=== PATIENT | female | born 1950 | race Caucasian/White ===

== ENCOUNTER 2018-07-14 09:54 | Emergency (ER) | payer MEDICARE, BC ==
[2018-07-14 10:43] LABS: BILIRUBIN,URINE NEGATIVE (NEGATIVE); GLUCOSE, URINE (UA) NEGATIVE (NEGATIVE); KETONES,URINE (UA) NEGATIVE (NEGATIVE); LEUKOCYTE ESTERASE, URINE NEGATIVE (NEGATIVE); NITRITE,URINE NEGATIVE (NEGATIVE); OCCULT BLOOD,URINE NEGATIVE (NEGATIVE); PH,URINE 5.5 PH (5.0-7.5); PROTEIN,URINE NEGATIVE (NEGATIVE); UROBILINOGEN,URINE 0.2 (NORMAL) E.U./dL (NORMAL)
[2018-07-14 10:45] LABS: CLARITY,URINE CLEAR (CLEAR)
[2018-07-14 11:23] LABS: BASOPHILS % (AUTO) 0.5 %; EOSINOPHILS # (AUTO) 0.1 10^3/uL (0.0-0.7); EOSINOPHILS % (AUTO) 2.3 %; HGB - HEMOGLOBIN 13.3 g/dL (12.0-16.0); LYMPHOCYTES # (AUTO) 0.8 10^3/uL (1.5-3.5); LYMPHOCYTES % (AUTO) 16.8 %; MEAN CORPUSCULAR HEMOGLOBIN 30.7 pg (27.0-31.0); MEAN CORPUSCULAR HGB CONC 34.2 g/dL (32.0-36.0); MEAN CORPUSCULAR VOLUME 89.8 fL (81.0-99.0); MEAN PLATELET VOLUME 9.6 fL (7.9-10.8); MONOCYTES # (AUTO) 0.3 10^3/uL (0.0-1.0); MONOCYTES % (AUTO) 6.9 %; NEUTROPHILS # (AUTO) 3.6 10^3/uL (1.5-6.6); NEUTROPHILS % (AUTO) 73.5 %; PLT - PLATELET COUNT 266 10^3/uL (130-450); RED BLOOD COUNT 4.31 10^6/uL (4.20-5.40); RED CELL DISTRIBUTION WIDTH 13.6 % (12.0-15.0); WHITE BLOOD COUNT 4.9 x10^3/uL (4.8-10.8)
[2018-07-14 11:38] LABS: ALBUMIN 4.6 g/dL (3.2-5.5); ALBUMIN/GLOBULIN RATIO 2.1 (1.0-2.2); BILIRUBIN,TOTAL 0.6 mg/dL (0.2-1.0); CALCIUM 9.3 mg/dL (8.5-10.3); CREATININE 0.6 mg/dL (0.4-1.0); TOTAL PROTEIN 6.8 g/dL (6.7-8.2)
--- NOTE | 2018-07-14 12:29 | ED Physician Documentation ---
PD HPI ABD PAIN - Stated complaint Stated Complaint: BLACK STOOL - Chief complaint Chief Complaint: Abd Pain - History obtained from History obtained from: Patient - History of Present Illness Timing - onset: Other (68-year-old woman with long history of functional constipation, negative colonoscopy per her about 3 years ago. She was traveling to [place] a couple of months ago and developed constipation and started taking MiraLAX which was ineffective and more recently started taking milk of magnesia which was minimally effective. She is having small hard stools now which over the last few days of turn dark and she is worried about GI bleeding. She has never had GI bleeding.) Review of Systems Constitutional: reports: Reviewed and negative Cardiac: denies: Chest pain / pressure, Palpitations GI: reports: Abdominal Pain (Fullness especially after she eats), Constipation, Bloody / black stool. denies: Nausea, Vomiting, Diarrhea, Hematemesis PD PAST MEDICAL HISTORY - Present Medications Home Medications: Ambulatory Orders Medication Instructions Recorded Confirmed Peg 3350/Na Sulf,Bicarb,Cl/KCl 4,000 ml PO ONCE #1 bottle 07/14/18 [Golytely] - Allergies Allergies/Adverse Reactions: Allergies Allergy/AdvReac Type Severity Reaction Status Date / Time avocado AdvReac Nausea Verified 07/14/18 10:25 cucumber AdvReac Nausea Verified 07/14/18 10:25 PD ED PE NORMAL - Vitals Vital signs reviewed: Yes - General General: Alert and oriented X 3, No acute distress - Respiratory Respiratory: No respiratory distress, Clear bilaterally - Abdomen Abdomen: Other (Hyperactive bowel tones but soft and nontender) - Rectal Rectal: Other (Done with Yojana ZELAYA present and chaperoning, there is a minimal soft fecal impaction, the stool is dark but guaiac negative. Enema was placed during exam.) - Neuro Neuro: Alert and oriented X 3, Normal speech Results - Vitals Vitals: Vital Signs - 24 hr 07/14/18 10:18 Temperature 36.8 C Heart Rate 84 Respiratory 16 Rate Blood Pressure 111/71 O2 Saturation 100 Oxygen O2 Source Room air - Labs Labs: Laboratory Tests 07/14/18 07/14/18 07/14/18 10:30 11:15 11:15 WBC 4.9 RBC 4.31 Hgb 13.3 Hct 38.7 MCV 89.8 MCH 30.7 MCHC 34.2 RDW 13.6 Plt Count 266 MPV 9.6 Neut # (Auto) 3.6 Lymph # (Auto) 0.8 L Bartholomew # (Auto) 0.3 Eos # (Auto) 0.1 Baso # (Auto) 0.0 Absolute Nucleated RBC 0.00 Nucleated RBC % 0.1 Sodium 136 Potassium 4.3 Chloride 98 L Carbon Dioxide 29 Anion Gap 9.0 BUN 20 Creatinine 0.6 Estimated GFR (MDRD) 99 Glucose 94 Calcium 9.3 Total Bilirubin 0.6 AST 29 ALT 17 Alkaline Phosphatase 78 Total Protein 6.8 Albumin 4.6 Globulin 2.2 Albumin/Globulin Ratio 2.1 Lipase 50 Urine Color YELLOW Urine Clarity CLEAR Urine pH 5.5 Ur Specific [place] 1.015 Urine Protein NEGATIVE Urine Glucose (UA) NEGATIVE Urine Ketones NEGATIVE Urine Occult Blood NEGATIVE Urine Nitrite NEGATIVE Urine Bilirubin NEGATIVE Urine Urobilinogen 0.2 (NORMAL) Ur Leukocyte Esterase NEGATIVE Ur Microscopic Review NOT INDICATED Urine Culture Comments NOT INDICATED PD MEDICAL DECISION MAKING - ED course ED course: 68-year-old woman with long-standing constipation presents with exacerbation of same and concern for GI bleeding which is not present on labs or guaiac examination. She was given an enema here and GoLYTELY at home. Departure - Departure Disposition: Home, Self Care Clinical Impression: Dark stools Constipation Qualifiers: Constipation type: unspecified constipation type Qualified Code(s): K59.00 - Constipation, unspecified Condition: Good Record reviewed to determine appropriate education?: Yes Instructions: ED Constipation Prescriptions: Peg 3350/Na Sulf,Bicarb,Cl/KCl [Golytely] 4,000 ml PO ONCE #1 bottle Comments: Call your doctor to arrange a follow-up appointment, make the next available appointment. In the interim, return anytime if worse or if new symptoms develop.
[2018-07-14 12:52] VITALS: BP 152/72
== END 2018-07-14 13:07 | disposition home or self-care (01) ==
LOC: ED 09:54
DX: R19.5 Other fecal abnormalities (principal); K59.00 Constipation, unspecified
CPT/HCPCS: 36415; 80053; 81001; 81003; 83690; 85025; 87086; 99283

== ENCOUNTER 2023-04-25 14:45 | Outpatient (CLI) | payer MEDICARE, BC ==
--- NOTE | 2023-04-25 16:18 | SLEEP CARE CONSULTATION ---
Information from patient questionnaire entered by Monica Morales. I have reviewed and concur with the information entered by Monica Morales. This document represents the service I personally performed and the decisions made by me, Makeda Byrd ARNP. History of Present Illness Service Date and Time: 04/25/2023 1445 Reason for Visit: New patient, Previously diagnosed sleep apnea, sleep apnea on CPAP therapy Chief Complaint: reports: Other (TRANSFER FROM [place]) Date of Onset: 2011 Usual bedtime: 9-930PM Time it takes to fall asleep: 5-10MIN Snores at night: No Observed to quit breathing while asleep: Yes Sleeps alone due to snoring: No Number of times waking at night: 0-1 Reasons for waking at night: reports: Other (UNKNOWN) Toss, Turn, or Twitch while sleeping: No Recalls having dreams: No Usually gets out of bed at: 630-7AM Feels refreshed in the morning: Yes Morning headache: No Sleepy or fatigued during the day: Yes Ever fallen asleep while driving: No Takes day naps: Yes Dreams during day naps: No Prior sleep studies: Yes Year and Where: [facility] 2011 Additional HPI information: LAZARO AHN was previously diagnosed to have mild, AHI 6.1, obstructive sleep apnea-hypopnea syndrome as seen in sleep study dated 03/02/2012 at [facility] and comes in today with spouse to establish for BIPAP therapy. - Parasomnia Symptoms Ever been unable to move upon waking from sleep: No Walks in sleep: No Talks in sleep: No Ever acted out dreams in sleep: No Ever felt weak in the knees when startled or emotional: No Bothered by creepy, crawly, restless sensations in legs: No Problems with memory or concentration: Yes CPAP Compliance Data - Data Reviewed with Patient Average duration of nightly device use: 6 hours 55 minutes Compliance rate %: 73 (73/90 days used) Current pressure setting (cmH2O): 14/4 with 4 support Average residual AHI: 5.8 Central apnea: 4.6 Obstructive apnea: 0.7 Hypopnea: 0.4 Average large leak: 2.3 L/min Compliance data discussion: She is using an AirCurve 10 BIPAP that was setup in 02/2015. She is getting her supplies from [facility]. She is using a Resmed AirFit N30i mask, small cushion. Subjective Missed days of use due to: reports: travel (overseas, portable stopped working) Patient concerns: reports: dry mouth, nose, throat (oral vent). denies: aerophagia, mask discomfort, air blowing in eyes, mask leak noise, condensation in mask/hose, nasal congestion, epistaxis Observed to snore while using device: No Current pressure setting perceived as: comfortable On therapy, patient: reports: sleeping better, awakening more refreshed, being more awake and alert during the day, more rested overall. denies: drowsiness while driving Initial [place] Sleepiness Scale score: 5 (04/16/23) Past Medical History Past Medical History: reports: Hypertension, Hypothyroidism, Other (ALZHIEMERS) Social History The patient's occupation is a RE. Patient is and lives in [place]. Have you smoked in the past 12 months: No Cigarettes per day (20/pack): 30 Years of smokin Quit date: 1991 Smoking Pack Years: 15.0 Alcohol use: No Caffeine use: Yes Caffeine amount and frequency: 1 DAILY Family History Family history of sleep disordered breathing: No Allergies and Home Medications Known drug allergies: Yes ( LISTED) Drug allergies reviewed: Yes Home medication list reviewed: Yes (see updated list in EMR) Allergy and home medication list: Allergies avocado Adverse Reaction (Verified 04/25/23 09:04) Nausea cucumber Adverse Reaction (Verified 04/25/23 09:04) Nausea Review of Systems Weight gain over past 5 years: 10 Cardiovascular: reports: high blood pressure Gastrointestinal: denies: heartburn Neurological: reports: other (ALZ). denies: headaches Psychiatric: denies: anxiety, depression Ear/Nose/Throat: reports: tonsillectomy, wisdom teeth removed Musculoskeletal: reports: other (right hip replacement last year) Immunologic: reports: allergies to food or environment Physical Exam Vital signs obtained and entered by: MONICA Haas MA Blood Pressure: 120/62 (LEFT ARM) Cuff size: regular Heart Rate: 65 O2 Saturation: 99 Height: 5 ft 1.5 in Weight: 122 lb Body Mass Index: 22.6 BMI Classification: Normal Neck circumference: 12.5 Heart: regular rate and rhythm Lungs: clear bilaterally Impression and Plan 1. Obstructive Sleep Apnea-Hypopnea Syndrome, mild, with good treatment compliance and good apnea control with minimal elevation of residual AHI. Her central index is 4.6 and obstructive index 0.7. On CPAP therapy, the patient has better sleep quality and is more rested overall. The patients pressure will be changed to BIPAP 13/4 cmH20 with 4 cmH2O pressure support for elevation of residual AHI. Patient advised to contact me if pressure change is uncomfortable so that it can be adjusted. Goals for apnea control discussed. She has a ResMed AirCurve 10 that she received in 2015. The patients CPAP is over 5 years old and of reasonable use. Thus, the CPAP will be updated. A DWO prescription will be made. Compliance guidelines for new device and follow up discussed. She also states she would like to change to another DME because [facility] does not have any presence in [place] where she morris and they will not ship her supplies to [place]. For patient supply concerns, I will have my respiratory coordinator inform of DME options. Patient advised to contact this office if further supply problems. Patient's apnea severity and rationale for treatment to reduce apnea, improve sleep quality and reduce cardiovascular and cerebrovascular events was reviewed. I also reviewed the benefit of consistent device use of CPAP for hypertension. * Change auto CPAP pressure to 13/4 cmH2O with 4 cmH2O pressure support * Transfer DME * Update machine * Update supply prescription * Notify me if snoring with mask or feeling that the pressure is too much or too little * Attempt to lose weight * Call this office if any problems using CPAP * Return for follow up one month after obtaining new machine, or sooner if concerns arise Counseling Topics: Spare mask Prescriptions: BiPAP, Device supplies Visit Type: In Office Time Spent with Patient (minutes): 32 Provider Statement: I spent 100% of the Face to Face Visit with the patient with greater than 50% spent counseling the patient and coordination of care.
[2023-04-25 16:41] VITALS: BP 120/62
== END 2023-04-25 14:46 | disposition home or self-care (01) ==
LOC: SC 14:45
PROVIDERS: ATTEND Nurse Practitioner Family
DX: G47.33 Obstructive sleep apnea (adult) (pediatric) (principal); Z87.891 Personal history of nicotine dependence
CPT/HCPCS: 99203; G0463; 99212